=== PATIENT | female | born 1970 | race Caucasian/White ===

== ENCOUNTER 2018-09-18 18:27 | Emergency (ER) | payer MEDICAID ==
--- NOTE | 2018-09-18 18:41 | EDPHY ---
H & P Time Seen by Provider: 09/18/18 18:33 HPI/ROS: CHIEF COMPLAINT: Jaw is twitching HISTORY OF PRESENT ILLNESS: Arrival by EMS. 48-year-old woman presents with jaw twitching for the last 2 hr. She was at [facility] yesterday for nausea and some exacerbation of her Crohn's disease and received Zofran Reglan Benadryl and Toradol. For last 2 hr she has felt like her right side of her jaw is tingly and twitchy. She feels like she can't control it and it is difficult for her to speak. Not associated with headache or dental symptoms or sore throat. No ear symptoms. No difficulty with balance or strength or sensation in extremities. REVIEW OF SYSTEMS: Eye: no change in vision ENT: no sore throat Cardiac: no chest pain or syncope Pulmonary: no cough or SOB Abdomen: HPI, Crohn's is stable today Musculoskeletal: no back pain Skin: no rash Neuro: no headache Constitutional: no fever : no urinary symptoms A comprehensive 10 point review of systems is otherwise negative aside from elements mentioned in the history of present illness. PAST MEDICAL HISTORY: Includes Crohn's disease and bipolar disorder Social history: Smoker General Appearance: Alert and conversant, cooperative. Eyes: No scleral icterus. ENT, Mouth: Normal mucous membranes. Pharynx is normal without trismus. She does have a lot of twitching of her tongue and involuntary motion of especially the right side of her jaw and face. There is no facial swelling and no stridor or drooling. Respiratory: Normal respiratory effort, breath sounds equal, lungs are clear to auscultation. Cardiovascular: Regular rate and rhythm. Gastrointestinal: Abdomen is soft and non tender. Neurological: Alert, face symmetric, normal motor and sensory in extremities. Skin: Warm and dry, no rashes. Musculoskeletal: Normal range of motion of the neck. Psychiatric: Not agitated. Emergency Department course/MDM: I think stroke and dental infection and ACS are all unlikely. More likely to be dystonic reaction from her Reglan yesterday. 50 mg Benadryl given. 1911: Feels better, symptoms improving; had recurrence and got additional 50 mg IV Benadryl. On discharge felt better again, I think it is reasonable to have her go home at this time. Warned about future phenothiazine administration. Smoking Status: Current every day smoker Constitutional: Initial Vital Signs Temperature (C) 37.1 C 09/18/18 18:28 Heart Rate 93 09/18/18 18:28 Respiratory Rate 18 09/18/18 18:28 Blood Pressure 186/150 H 09/18/18 18:28 O2 Sat (%) 100 09/18/18 18:28 O2 Delivery Mode Room Air Allergies/Adverse Reactions: acetaminophen [From Darvocet-N 100] Allergy (Verified 11/26/09 20:36) morphine Allergy (Verified 05/10/18 18:51) propoxyphene [From Darvocet-N] Allergy (Verified 05/10/18 18:51) propoxyphene napsylate [From Darvocet-N 100] Allergy (Verified 11/26/09 20:36) Home Medications: Medication Instructions Recorded Asacol 11/26/09 Depakote 11/26/09 busPIRone 09/18/18 Medical Decision Making Differential Diagnosis: Differential considered including but not limited to dental problem, seizure, stroke, dystonic reaction, metabolic - Data Points Medications Given: Discontinued Medications Diphenhydramine HCl (Benadryl Injection) 50 mg IVP EDNOW ONE Stop: 09/18/18 18:40 Last Admin: 09/18/18 18:46 Dose: 50 mg Diphenhydramine HCl (Benadryl Injection) 50 mg IVP EDNOW ONE Stop: 09/18/18 19:38 Last Admin: 09/18/18 19:40 Dose: 50 mg Departure - Departure Disposition: Home, Routine, Self-Care Clinical Impression: Dystonic drug reaction Condition: Good Instructions: Diphenhydramine (By mouth) Additional Instructions: You probably had an adverse reaction to Reglan, called a dystonic reaction. Take oral Benadryl 50 mg every 6 hr for the next 3 days. You should not receive Reglan again. You could also be at risk with related medications such as a Phenergan or Compazine. Referrals: [facility],. [Clinic] - As per Instructions
[2018-09-18 23:31] VITALS: BP 167/96
== END 2018-09-18 20:10 | disposition home or self-care (01) ==
LOC: EDUNIT#
DX: G24.02 Drug induced acute dystonia (principal); M62.838 Other muscle spasm; K50.90 Crohn's disease, unspecified, without complications
CPT/HCPCS: 96374; J1200

== ENCOUNTER 2018-10-17 20:38 | Emergency (ER) | payer MEDICAID ==
[2018-10-17] MEDS ORDERED: NS 1,000 ML IV ONE (20:57)
[2018-10-17] MEDS ORDERED: PROMETHAZINE HCL 25 MG/ML INJ IVP ONE (20:57)
[2018-10-17] MEDS ORDERED: HYDROmorphONE/DILAUDID 2 MG/ML INJ IVP ONE (20:58)
[2018-10-17] MEDS ORDERED: IOPAMIDOL (ISOVUE-300) 100 ML BTL ONE (22:07)
[2018-10-17] MEDS ORDERED: MESALAMINE 400 MG CAP.DR PO ONE (23:30)
[2018-10-17] MEDS ORDERED: MESALAMINE 800 MG TAB.DR PO ONE (23:30)
== END 2018-10-17 23:48 | disposition home or self-care (01) ==
DX: D50.9 Iron deficiency anemia, unspecified (principal); K50.90 Crohn's disease, unspecified, without complications; D25.9 Leiomyoma of uterus, unspecified; N83.201 Unspecified ovarian cyst, right side; E86.9 Volume depletion, unspecified; F31.9 Bipolar disorder, unspecified; F17.200 Nicotine dependence, unspecified, uncomplicated